=== PATIENT | female | born 1955 | race Caucasian/White ===

== ENCOUNTER → 2017-01-29 | Outpatient (CLI) | payer OTHER ==
[2017-01-29 11:00] LABS: BLOOD UREA NITROGEN 16 mg/dl (7-18); BUN/CREATININE RATIO 20.7 (10-20); CALCIUM 9.1 mg/dl (8.5-10.1); CARBON DIOXIDE 27 mmol/L (21-32); CHLORIDE 110 mmol/L (98-107); CREATININE 0.79 mg/dl (0.60-1.20); GLUCOSE 106 mg/dl (70-99); SODIUM 144 mmol/L (136-145)
[2017-01-29 11:04] LABS: CHOLESTEROL 196 mg/dl (0-200); HDL CHOLESTEROL 49 mg/dl; LDL CHOLESTEROL CALCULATED 122 mg/dl; TRIGLYCERIDES 125 mg/dl (0-150); VERY LOW DENSITY LIPOPROT CALC 25 mg/dl
== END | disposition home or self-care (01) ==
LOC: C.LAB 09:34
PROVIDERS: ATTEND Family Medicine
DX: I10 Essential (primary) hypertension (principal); E78.5 Hyperlipidemia, unspecified

== ENCOUNTER → 2017-03-31 | Outpatient (CLI) | payer OTHER ==
[2017-03-31 12:21] LABS: ESTIMATED AVERAGE GLUCOSE 117 mg/dl; HA1C FLAG Normal (Normal)
== END | disposition home or self-care (01) ==
LOC: C.LAB 09:41
PROVIDERS: ATTEND Nurse Practitioner Adult Health
DX: R73.01 Impaired fasting glucose (principal)

== ENCOUNTER → 2017-05-27 | Outpatient (CLI) | payer OTHER ==
[~2017-05-27] VITALS: Ht 154.9 cm; Wt 84.0 kg
[2017-05-27 13:29] VITALS: BP 156/90; PULSE 69; Ht 154.9 cm; Wt 84.0 kg
== END | disposition home or self-care (01) ==
LOC: C.NEUR 13:00
PROVIDERS: ATTEND Internal Medicine Pulmonary Disease
DX: R06.83 Snoring (principal); R06.81 Apnea, not elsewhere classified; R53.83 Other fatigue; J30.9 Allergic rhinitis, unspecified; R51 Headache; E66.9 Obesity, unspecified

== ENCOUNTER → 2017-07-18 | Outpatient (CLI) | payer OTHER | END | disposition home or self-care (01) | LOC: C.NEUR 14:42 | PROVIDERS: ATTEND Internal Medicine Pulmonary Disease | DX: R06.81 Apnea, not elsewhere classified (principal); R53.83 Other fatigue; R51 Headache; E66.9 Obesity, unspecified; R06.83 Snoring ==

== ENCOUNTER → 2017-08-05 | Outpatient (CLI) | payer OTHER ==
[~2017-08-05] VITALS: Ht 154.9 cm; Wt 83.5 kg
[2017-08-05 15:48] VITALS: BP 134/85; PULSE 89; Ht 154.9 cm; Wt 83.5 kg
== END | disposition home or self-care (01) ==
LOC: C.NEUR 15:30
PROVIDERS: ATTEND Internal Medicine Pulmonary Disease
DX: G47.33 Obstructive sleep apnea (adult) (pediatric) (principal); I10 Essential (primary) hypertension; G47.19 Other hypersomnia; R53.83 Other fatigue

== ENCOUNTER → 2017-08-15 | Outpatient (CLI) | payer OTHER ==
--- NOTE | 2017-08-16 06:36 | PAP/PSG TECHNICIAN REPORT ---
[facility] Supervisor Cleaning And Anne[employer] Polysomnogram Report Study name: None Report date: 08/16/2017 Study date: 08/15/2017 Referring Physician: Fidel Snowden M.D. Name: YUNIEL MORENO Interpreting Physician: Fidel Snowden M.D. Date of : 1955 Supervisor Cleaning And Annealing: EILEEN Garza. Sex: Female Age: 62 StudyType: PSG PAP Weight: 83.5 kgs Height: 62 years, Height 5' 1" Neck Circum: 15 inches BMI: Medications: Irbesartan-HCTZ 150-12.5mg, Zaditor Solution, Patient History Study started on room air with 4cwp cpap in room #6. 62 yr old female here tonight for a new titration study. She had a HST that had an TANJA of 21.3. Her ESS=16/24. Neck circ=15inches. Parameters Monitored NPSG: E1-M2, E2-M1, Fp1-M2, Fp2-M1, F3-M2, F4-M2, F4-M1, C3-M2, C4-M2, C4-M1, O1-M2, O2-M2, O2-M1, T3-M2, T4-M1, P3-M2, P4-M1, CHIN1, CHIN2, HR, EKG, Legs, PFLOW, SNOR, FLOW, CFLOW, Tidal Volume, THOR, ABDO, SpO2, PLTH, CPRESS, ETCO2 Wave, ETCO2, pH Sleep Architecture Sleep Stages Time at Lights Off 10:36:47 PM STAGES Time (min.) TST (%) Time at Lights On 5:30:17 AM Wake 115.5 -- Total Recording Time (TRT) 414.00 min. N1 27.5 9 Total Sleep Period (TSP) 375.0 min. N2 178.5 60 Total Sleep Time (TST) 298.0min. N3 70.0 23 Awake Time 115.5 min. REM 22.0 7 Wake after Sleep Onset 77.0 min. Sleep Efficiency (SE) 72 % Sleep Onset Latency (NATACHA) 38.5 min. Number of Stage 1 Shifts None Awakenings 30 Stage Changes 125 Number of REM periods 3 REM 22.0 7 REM Latency 237.5 min. NREM 276.0 93 Body Position Analysis Supine Right Left Side Prone Vertical Total Sleep Time (min.) 95.1 73.4 156.0 229.41 26.1 0.0 Total Sleep Time (%) 16% 25% 52% 77 7% N/A% Total Sleep Time REM (min.) 0.0 0.0 22.0 None 0.0 0.0 Total Sleep Time NREM (min.) 46.6 73.4 134.0 None 22.0 0.0 Intermittent Wake (min.) 48.5 28.5 34.4 None 4.1 0.0 Total Sleep Period (%) 18% None None None None None Arousals Myoclonus (PLM) * Events Count Index Events Count Index Spontaneous 33 7 Events Awake (PLMW) 135 70.1 Respiratory 42 8.9 Events Asleep w/ Arousal (PLMA) 35 7.0 PLM 33 7 Events Asleep w/o Arousal (PLMS) 105 21.1 Snoring 2 0 Total Asleep 140 28.2 Total 110 22 Total 275 40 Respiratory Analysis * CA OA MA CH H RERA Total Count 2 10 1 0 39 0 52 Index 0.4 2.0 0.2 0 7.9 0 10.5 Mean Duration 20.2 17.8 16.7 0.00 25.5 0.0 23.6 Longest Duration 22.6 21.4 16.7 0.00 16.7 0.0 63.0 Respiratory Event Summary Total Supine ~Supine Right Left Prone REM NREM Apneas Count 13 4 9 0 8 1 0 13 Index 2.6 5 2 0.0 3.1 3 0 3 Hypopneas (4% Desat) Count 39 10 29 4 25 0 0 39 Index 7.9 12.9 7 3.3 9.6 0.0 0.0 8.5 Apneas & All Hypopneas Count 52 14 38 4 33 1 0 52 Index 10.5 18 9 3 13 3 0.0 11.3 Respiratory Events (Associate Software Development Engineer+All Hyp+RERA) Count 52 14 38 4 33 1 0 52 Index 10.5 18 9 3.3 12.7 2.7 0.0 11.3 Respiratory Related Arousal Count 42 14 33 1 32 0 0 44 Index 8.9 14 8 1 12 0 0 10 Snoring Analysis Supine Right Left Prone REM NREM Total Snore duration 8.9 min Snores count 57 96 229 7 2 387 389 Snore mean duration 1.4 Sec Snores index 73 78 88 19 5.5 84.1 78.3 TST with snoring (%) 3.0% Desaturation Event Summary: Minimum %SpO2 Event Count Mean/Min/Max Duration(sec.) Desaturation Index % Time In Bed > 90 89 25.6 / 4.3 / 57.3 15.2 87.2 86 - 90 4 14.4 / 7.5 / 20.3 4.7 12.7 81 - 85 0 N/A 0.0 0.1 76 - 80 0 N/A 0.0 0.0 71 - 75 0 N/A 0.0 0.0 66 - 70 0 N/A 0.0 0.0 61 - 65 0 N/A 0.0 0.0 56 - 60 0 N/A 0.0 0.0 51 - 55 0 N/A 0.0 0.0 < 50 0 N/A 0.0 0.0 Total REM NREM Awake <50% 0.0 min. 0.0 min. 0.0 min. 0.0 min. 51 - 60% 0.0 min. 0.0 min. 0.0 min. 0.0 min. 61 - 70% 0.0 min. 0.0 min. 0.0 min. 0.0 min. 71 - 80% 0.0 min. 0.0 min. 0.0 min. 0.0 min. 81 - 90% 51.7 min. 0.0 min. 32.3 min. 19.4 min. 91 - 100% 351.2 min. 22.0 min. 243.3 min. 85.9 min. Average 92 93 93 92 Minimum SpO2 82 91 87 82 Desaturation Event Index 12.9 0.0 12.4 18.2 # Desat. Events below 89% 24 N/A 17 7 Time(%) with Saturation below 89% 1.2 0.0 0.7 0.5 Time(min.) with Saturation below 89% 4.8 0.0 2.8 2.0 Time (mins) REM (mins) NREM (mins) % of TST SpO2 Below 90% 46 N/A N46 3.3 SpO2 Below 88% 5 0 0 0 Heart Rate Analysis Min (bpm) Max (bpm) Average (bpm) Awake 40 225 82 NREM 65 188 77 REM 68 79 74 Overall 65 188 77 Supplemental O2 Values Minimum O2 level: None Value Start Time End Time Supervisor Cleaning And [employer]aling Comments Ms. Moreno slept in the right, left, prone and supine positions. No cardiac arrhythmia noted. Some leg movements were noted. No bruxism noted. CPAP was initiated at +4 CMH2O and up-titrated to a level of +11 CMH2O, which nearly eliminated all respiratory events and snoring. A small Simplus full face mask by Daxa was used during titration. She awoke to use the restroom 1 time during the night. She stated that she slept worse than when at home. She over did it at the gym and was having knee and hip pain. The final report will be interpreted and signed by a sleep physician. The completed physician report will then be placed in the patient medical record. Therapy Event: Therapy (cm H20) 4 5 6 7 8 9 10 11 Total Time at Pressure (min.) 47.8 6.5 16.8 38.6 47.6 66.2 44.1 145.8 TST at Pressure (min.) 7.8 6.5 15.3 28.6 46.8 31.1 27.6 134.3 # Periods 1 1 1 1 1 1 1 1 Sleep Onset (min.) 38.4 0.0 0.0 0.0 0.0 0.1 0.0 0.0 REM Onset (min.) N/A N/A N/A N/A N/A N/A N/A 8.3 Sleep Efficiency % 16 100 91 74 98 46 62 92 Wakefulness (%) 83.6 0.0 8.9 25.9 1.8 53.1 37.4 7.9 Wakefulness (min.) 39.9 0.0 1.5 10.0 0.9 35.1 16.5 11.5 NREM 1 (%) 8.4 22.9 23.8 9.7 6.9 4.5 4.5 4.1 NREM 1 (min.) 4.0 1.5 4.0 3.7 3.3 3.0 2.0 6.0 NREM 2 (%) 8.1 77.1 60.2 35.0 64.0 42.4 37.7 48.6 NREM 2 (min.) 3.8 5.0 10.1 13.5 30.5 28.1 16.6 70.8 NREM 3 (%) 0.0 0.0 7.0 29.4 27.3 0.0 20.4 24.4 NREM 3 (min.) 0.0 0.0 1.2 11.3 13.0 0.0 9.0 35.5 REM (%) 0.0 0.0 0.0 0.0 0.0 0.0 0.0 15.1 REM (min.) 0.0 0.0 0.0 0.0 0.0 0.0 0.0 22.0 # Arousals 11 11 14 12 20 10 14 18 Arousal Index 84.1 100.8 55.0 25.2 25.7 19.3 30.4 8.0 # Snore 3 11 43 163 86 55 3 25 Snore Index 22.9 100.8 168.9 342.4 110.3 106.2 6.5 11.2 AHI 45.9 100.8 35.4 14.7 9.0 7.7 10.9 1.3 AHI Supine N/A N/A N/A N/A 33.1 8.3 33.2 8.6 AHI Non-Supine 45.9 100.8 35.4 14.7 0.0 7.2 5.4 0.5 NREM AHI 45.9 100.8 35.4 14.7 9.0 7.7 10.9 1.6 REM AHI N/A N/A N/A N/A N/A N/A N/A 0.0 RDI 45.9 100.8 35.4 14.7 9.0 7.7 10.9 1.3 # Obstructive 2 3 1 0 1 0 2 1 # Central Ap 0 2 0 0 0 0 0 0 # Mixed 0 0 0 0 1 0 0 0 # Hypopneas 4 6 8 7 5 4 3 2 RERAS 0 0 0 0 0 0 0 0 Total Respiratory Events 6 11 9 7 7 4 5 3 Time Below SpO2 89.00% (min.) 0.8 1.3 0.1 0.1 0.2 0.3 0.0 0.0 Mean NREM SpO2 (%) 91 91 92 92 92 91 91 94 Mean REM SpO2 (%) N/A N/A N/A N/A N/A N/A N/A 93 Mean Sleep SpO2 (%) 91 91 92 92 92 91 91 94 Min NREM SpO2 (%) 87 87 88 88 88 88 89 90 Min REM SpO2 (%) N/A N/A N/A N/A N/A N/A N/A 91 Position Supine (min.) 0.0 0.0 0.0 0.0 12.7 14.5 5.4 14.0 Position Non-supine (min.) 7.8 6.5 15.3 28.6 34.1 16.6 22.2 120.3 LM Index Sleep 22.9 91.6 15.7 23.1 25.7 30.9 19.5 29.9 LM Index NREM 22.9 91.6 15.7 23.1 25.7 30.9 19.5 30.5 LM Index REM N/A N/A N/A N/A N/A N/A N/A 27.3 Mean Heart Rate (bpm) 80 80 82 80 82 80 79 73 Min Heart Rate (bpm) 75 73 73 74 76 74 73 65
--- NOTE | 2017-08-16 10:01 | POLYSOMNOGRAPH REPORT ---
CLINICAL DATA: 62-year-old female referred by myself for CPAP titration study. She had a home sleep apnea test performed which showed an RDI of 21.3 indicating moderate sleep apnea. SLEEP ARCHITECTURE: Total sleep period was 375 minutes. Total sleep time was 298 minutes divided between 276 minutes of non-REM sleep and 22 minutes of REM sleep. Sleep onset latency was delayed at 38.5 minutes. REM latency was delayed at 237.5 minutes. Sleep efficiency was 72%. Wake after sleep onset was 77 minutes. Sleep consisted of stage N1 9%, stage N2 60%, stage N3 22%, and REM 7%. AROUSAL DATA: 110 arousals were recorded for an index of 22 per hour. PLM DATA: 140 limb movements during sleep were noted for an index of 28.2 per hour with arousal index of 7 per hour. RESPIRATORY DATA: The AHI was 10.5. There were 2 central, 10 obstructive, and 1 mixed apneic episodes. The longest apneic episode was 22.6 seconds. There were 39 hypopneic episodes. The mean duration of hypopnea was 25.5 seconds. OXIMETRY DATA: Transient nocturnal hypoxemia was seen. Oxygen delma was 87%. Mean saturation was 92%. Time below 88% was 5 minutes. EKG: Heart ranged from 55-188 beats per minute. No arrhythmias were noted. WHITE SUGAR PAN TANK OPERATOR'S COMMENTS AND TREATMENT SUMMARY: The patient slept in the right, left, prone, and supine positions. A small Simplus full face mask by Daxa was used. The patient was titrated up to a final pressure setting of 11 cm of water pressure. At her final pressure setting, the patient slept for 134 minutes with an AHI of 1.3. IMPRESSION: Moderate sleep apnea/hypopnea corrected with CPAP 11 cm of water pressure Daxa small Simplus full facemask. RECOMMENDATIONS: The patient will be started on the above noted treatment regimen and seen back in followup within 90 days to document efficacy and compliance. [facility]
== END | disposition home or self-care (01) ==
LOC: C.NEUR 21:00
PROVIDERS: ATTEND Internal Medicine Pulmonary Disease
DX: G47.30 Sleep apnea, unspecified (principal)

== ENCOUNTER → 2018-03-24 | Outpatient (CLI) | payer OTHER ==
[2018-03-24 11:17] LABS: ALBUMIN 3.8 gm/dl (3.4-5.0); ALKALINE PHOSPHATASE 69 U/L (45-117); ALT/SGPT 36 U/L (12-78); AST/SGOT 15 U/L (15-37); BLOOD UREA NITROGEN 17 mg/dl (7-18); CALCIUM 8.6 mg/dl (8.5-10.1); CARBON DIOXIDE 28 mmol/L (21-32); CHOLESTEROL 183 mg/dl (0-200); CREATININE 0.71 mg/dl (0.60-1.20); GLUCOSE 103 mg/dl (70-99); LDL CHOLESTEROL CALCULATED 109 mg/dl; POTASSIUM 4.1 mmol/L (3.5-5.1); SODIUM 140 mmol/L (136-145); TOTAL PROTEIN 7.5 gm/dl (6.4-8.2)
[2018-03-24 11:27] LABS: HEMOGLOBIN A1C 5.6 % (4.5-5.6)
== END | disposition home or self-care (01) ==
LOC: C.LAB 09:16
PROVIDERS: ATTEND Family Medicine
DX: I10 Essential (primary) hypertension (principal); R73.03 Prediabetes

== ENCOUNTER 2023-01-17 06:28 | Observation (INO) ==
--- NOTE | 2022-12-09 12:28 | PAT Medication Instructions ---
Medication Instructions Date of Service December 09, 2022 Home Medications Medication Instructions Recorded CPAP Supplies #1 ea 03/29/19 Lactobacillus rhamnosus GG 5 5,000 mmu cells PO DAILY #30 ea 09/10/20 billion cell oral powder packet ([employer] Probiotics) Lactobacillus rhamnosus GG 5 billion cell oral powder packet ([employer] Probiotics) 5,000 mmu cells PO DAILY Doterra 1 dose PO BID Soothe Eye Drops 1 dose OPL BID apple cider vinegar 600 mg capsule 600 mg PO QAM digestive enzymes 1 cap PO DAILY fexofenadine 180 mg tablet 180 mg PO QAM irbesartan 150 mg-hydrochlorothiazide 12.5 mg tablet 1 tab PO QAM psyllium 1 packet PO HS sodium chloride 0.9 % spray 1 spray miscellaneous DIRECTED PRN Congestion tea tree oil 100 % topical 1 ea topical DIRECTED STOP taking 2 weeks before surgery (or as soon as possible if surgery is within 2 weeks) Doterra 1 dose PO BID apple cider vinegar 600 mg capsule 600 mg PO QAM STOP taking 24 hours before surgery tea tree oil 100 % topical 1 ea topical DIRECTED DO NOT take the morning of surgery Lactobacillus rhamnosus GG 5 billion cell oral powder packet ([employer] Probiotics) 5,000 mmu cells PO DAILY digestive enzymes 1 cap PO DAILY fexofenadine 180 mg tablet 180 mg PO QAM irbesartan 150 mg-hydrochlorothiazide 12.5 mg tablet 1 tab PO QAM Take morning of surgery With a small sip of water, OTHERWISE NOTHING TO EAT OR DRINK AFTER MIDNIGHT: Soothe Eye Drops 1 dose OPL BID sodium chloride 0.9 % spray 1 spray miscellaneous DIRECTED PRN Congestion (if needed) Take evening before surgery Soothe Eye Drops 1 dose OPL BID psyllium 1 packet PO HS sodium chloride 0.9 % spray 1 spray miscellaneous DIRECTED PRN Congestion (if needed) Other Notes If you have any questions please call us at [phone] or [phone] or [phone] or [phone]
--- NOTE | 2022-12-15 10:29 | Anesthesiology Consultation ---
Date of Service December 15, 2022 Assessment & Plan (1) Encounter for pre-operative examination: - surgery/lab draw anxiety. - Outpatient joint assessment: Patient is currently scheduled for inpatient pathway. If re-evaluated pending system levels during current pandemic/surgeon requests outpatient pathway, patient is not recommended candidate for outpatient joint program from anesthesia standpoint. She states her would be caregiver and he is suffering from knee dysfunction at this time so she feels more comfortable remaining overnight. Chart Review Chart Review: Acceptable Risk for Surgery and Patient seen in Pre Admission Testing Teaching & Discussion Pre-Anesthesia Teaching/Discussion Notes: Instructed NPO after midnight before surgery, except medications with 15 cc of water. Medication instructions provided according to the PAT guidelines. History Surgery Operation Date: 01/17/23 08:25 Proposed Procedures p Right Total Knee Arthroplasty - Henrry Fregoso DO Height/Weight Height: 5 ft 1 in Weight: 85.275 kg Allergies Allergy/AdvReac Type Severity Reaction Status Date / Time No Known Drug Allergies Allergy Verified 12/09/22 08:01 Medications Home Medications Medication Instructions Recorded Confirmed Last Taken CPAP Supplies #1 ea 03/29/19 10/13/22 Unknown Lactobacillus rhamnosus GG 5 5,000 mmu cells PO DAILY #30 ea 09/10/20 12/09/22 Unknown billion cell oral powder packet ([employer] Probiotics) Doterra 1 dose PO BID 12/09/22 12/09/22 Unknown Soothe Eye Drops 1 dose OPL BID 12/09/22 12/09/22 Unknown apple cider vinegar 600 mg capsule 600 mg PO QAM 12/09/22 12/09/22 Unknown digestive enzymes 1 cap PO DAILY 12/09/22 12/09/22 Unknown fexofenadine 180 mg tablet 180 mg PO QAM 12/09/22 12/09/22 Unknown irbesartan 150 1 tab PO QAM 12/09/22 12/09/22 Unknown mg-hydrochlorothiazide 12.5 mg tablet psyllium 1 packet PO HS 12/09/22 12/09/22 Unknown sodium chloride 0.9 % spray 1 spray miscellaneous DIRECTED 12/09/22 12/09/22 Unknown PRN Congestion tea tree oil 100 % topical 1 ea topical DIRECTED 12/09/22 12/09/22 Unknown Past Medical History Medical History (Updated 12/15/22 @ 10:53 by Helen Sweet PA-C) Hearing loss bilat aides History of COVID-19 08/29/22 > home test > not hospitalized > symptoms resolved Hyperlipidemia Elevated ASCVD risk. Declined Statins 08/2020 Hypertension controlled, stable per pt; white coat HTN Moderate obstructive sleep apnea (~2018) CPAP Daily, Followed by Dr. Snowden Osteopenia Prediabetes diet control Patient denies h/o stroke, seizures, heart attack, heart failure, blood clots or blood transfusions. Exercise / Class Metabolic Activity II 4-5 Yardwork/Stairs/Walk up hill (denies chest discomfort or shortness of breath with 1 FOS) Past Family History Family History Mother Hypertension Brother Hypertension Family/Other Hypertension Denies family history of Ovarian cancer Prostate cancer Myocardial infarction Breast cancer Colorectal cancer Past Surgical History Surgical History (Updated 12/15/22 @ 10:55 by Helen Sweet PA-C) H/O arthroscopic knee surgery right H/O section x2 H/O eye surgery tear duct stents x 6 procedures History of cardiac cath 20 yrs ago > no stents History of colonoscopy History of tooth extraction WTE Past Anesthesia History No Hx of Anesthesia Complications and No Family Hx of Anesthesia Complications History of PONV No Hx of PONV and Hx of Motion Sickness Social History Smoking Status: Never smoker Do You Dip or Chew Tobacco: No Hx Alcohol Use: Yes Alcohol type: beer and wine alcohol intake frequency: a few times a week Hx Substance Use: No substance use type: does not use Review of Systems Patient denies chest pain, shortness of breath, dyspnea on exertion, reflux, fever, chills, cough, wheezing, or palpitations. Physical Exam Vital Signs Vitals BP 161/82 (pt reports home BP readings are consistently 120-80s) P 70 TEMP 98.2 SP02 94% on RA RESP 18 Physical Full cervical extension range of motion without pain TMD 3.5 finger breadths Mallampati Score 3 Dentition: several crowns, denies chipped or loose teeth, caps/crowns, implants or bridges Lungs: normal respiratory effort. Clear throughout to auscultation, no adventitious breath sounds Cardiac: regular rate and rhythm, no murmurs noted Carotid arteries: negative bruit bilat Lab Results Anesthesia Preop Results Results Anesthesia Widget: WBC 6.83 K/ul (4.8-10.8) 12/15/22 Hgb 15.2 g/dl (12.0-16.0) 12/15/22 Hct 44.6 % (37.0-47.0) 12/15/22 Plt 243 K/uL (130-400) 12/15/22 Na 141 mmol/L (136-145) 12/15/22 K 3.6 mmol/L (3.5-5.1) 12/15/22 Cl 104 mmol/L (98-107) 12/15/22 CO2 28 mmol/L (21-32) 12/15/22 BUN 19 mg/dl (6-23) 12/15/22 Creat 0.81 mg/dl (0.6-1.2) 12/15/22 Glucose Level 90 mg/dl (70-99(Fasting)) 12/15/22 PT 11.2 Seconds (9.0-12.0) 12/15/22 PTT 28.8 Seconds (21.0-31.0) 12/15/22 INR 1.1 (0.9-1.1) 12/15/22 Blood Type A Positive 12/15/22 Antibody Screen NEGATIVE 12/15/22 Testing Electrocardiogram Date: 12/15/22 NSR, rate 69 bpm Chest X-Ray Date: 12/15/22 Cardiac silhouette is enlarged. No pneumothorax, pleural effusion, airspace consolidation or pulmonary edema. Bones of the chest appear grossly intact. IMPRESSION: No acute process. COVID-19 Risk Screen Screening Information COVID-19 Screen Date: 12/15/22 Exposure 21 Days Family/Household +COVID Last 21 Days: No Exposure 10 Days Any COVID Exposure Last 10 Days: No Symptoms Last 10 Days Experienced COVID Sx Last 10 Days: No + COVID 0-90 Days COVID + in Last 0-90 Days: No
--- NOTE | 2023-01-13 10:01 | History & Physical Report ---
Date of Service January 13, 2023 Assessment & Plan (1) Osteoarthritis of right knee: We will proceed with a right total knee arthroplasty. Postoperatively she will be started on aspirin for DVT prophylaxis and kept overnight in the hospital for postop medical management. She plans to see Jessica Salgado physical therapy upon discharge. History of Present Illness Chief Complaint: Osteoarthritis of the right knee. Primary Care Provider: Shraddha Mayer DO Juliette is a pleasant 67-year-old female who has been dealing with chronic worsening osteoarthritis of her right knee. She has failed extensive conservative treatment for this including injections, physical therapy, active modifications, and anti-inflammatories. She has elected proceed with a right total knee arthroplasty. Allergies Allergy/AdvReac Type Severity Reaction Status Date / Time No Known Drug Allergies Allergy Verified 12/09/22 08:01 Home Medications Medication Instructions Recorded Confirmed Type CPAP Supplies #1 ea 03/29/19 10/13/22 Rx Lactobacillus rhamnosus GG 5 5,000 mmu cells PO DAILY #30 ea 09/10/20 12/09/22 Rx billion cell oral powder packet ([employer] Probiotics) Doterra 1 dose PO BID 12/09/22 12/09/22 History Soothe Eye Drops 1 dose OPL BID 12/09/22 12/09/22 History apple cider vinegar 600 mg capsule 600 mg PO QAM 12/09/22 12/09/22 History digestive enzymes 1 cap PO DAILY 12/09/22 12/09/22 History fexofenadine 180 mg tablet 180 mg PO QAM 12/09/22 12/09/22 History irbesartan 150 1 tab PO QAM 12/09/22 12/09/22 History mg-hydrochlorothiazide 12.5 mg tablet psyllium 1 packet PO HS 12/09/22 12/09/22 History sodium chloride 0.9 % spray 1 spray miscellaneous DIRECTED 12/09/22 12/09/22 History PRN Congestion tea tree oil 100 % topical 1 ea topical DIRECTED 12/09/22 12/09/22 History Past Med/Surg History Medical History Hearing loss bilat aides History of COVID-19 08/29/22 > home test > not hospitalized > symptoms resolved Hyperlipidemia Elevated ASCVD risk. Declined Statins 08/2020 Hypertension controlled, stable per pt; white coat HTN Moderate obstructive sleep apnea (~2018) CPAP Daily, Followed by Dr. Snowden Osteopenia Prediabetes diet control Surgical History H/O arthroscopic knee surgery right H/O section x2 H/O eye surgery tear duct stents x 6 procedures History of cardiac cath 20 yrs ago > no stents History of colonoscopy History of tooth extraction WTE Family History Mother Hypertension Brother Hypertension Family/Other Hypertension Denies family history of Ovarian cancer Prostate cancer Myocardial infarction Breast cancer Colorectal cancer Social History Smoking Status: Never smoker Second Hand Exposure: No; Do You Dip or Chew Tobacco: No; Hx Alcohol Use: Yes Alcohol type: beer and wine Alcohol Intake Frequency: 4 or More x per/Week Hx Substance Use: No Preferred Language: Persian Communication Ability: Effective Visual Impairment: Diminished Hearing Ability: Use of Hearing Aid Shoe Shanker Required: No Beliefs That Will Affect Care: None marital status: Current Living Situation: Spouse current occupational status: retired Feels Safe at Home: Yes Childhood Exposure to Second-Hand Smoke: No Diet: Weight Watchers caffeine: Yes Dental Care, Regularly: Yes Physical Activity Frequency: 3-4 Times per Week Seatbelt Use: always Sunscreen Use: Yes Do you think of yourself as: straight/heterosexual Assistive Devices: CPAP, Glasses and Hearing Aid - Bilateral Review of Systems All systems reviewed & are unremarkable except as noted in HPI & below. Physical Exam Physical examination of the right knee shows range of motion 0 to 120 degrees. No instability. Pain of the distal medial femoral condyle and over the medial joint line.. Constitutional WD/WN, vitals as above Eyes PERRL, conjunctivae normal, anicteric sclerae ENMT external ear and nose normal, oropharynx normal Neck trachea midline, no thyromegaly Respiratory normal respiratory effort, lungs clear to auscultation Cardiovascular RRR, no murmur, no edema Gastrointestinal (Abdomen) normal bowel sounds, soft, nontender, no hepatosplenomegaly Skin no rashes, warm and dry Psychiatric A+Ox3, euthymic affect Results & Data Results & Data Laboratory Results . Diagnostic Findings X-rays of the right knee show advanced osteoarthritis with joint space narrowing, osteophyte formation, and [id number] articulation.. PG Care Time/CCT Total # of Minutes Spent Total Time Spent with Patient: Total time spent is greater than 50% in coordination of care (as documented) at patient's floor/unit and/or counseling patient: Coding Level of Care Code None Diagnoses Osteoarthritis of right knee M17.11
[~2023-01-17 06:28] MED LIST: ACETAMINOPHEN 500 MG TAB PO SCH; BUPIVACAINE 0.25% PF 30 ML VIAL ONE; BUPIVACAINE 0.5 % 5 MG/1 ML PF 10ML VIAL ONE; FAMOTIDINE 20 MG TAB PO SCH; GABAPENTIN 300 MG CAP PO SCH; LR 500ML BOLUS, THEN 15ML/HR IV SCH; LR 60ML/HR IV SCH; ORTHO JOINT MIX INFIL SCH; TRANEXAMIC ACID 1,000 MG **IV Intra-op IV SCH; TRANEXAMIC ACID 1,000 MG **IV Pre-op IV SCH; ceFAZolin 2000MG 2,000 MG/15 ML SYR IV SCH; dexAMETHasone 4 MG TAB PO SCH
[2023-01-17] MEDS ORDERED: ONDANSETRON INJ 2 MG/ML 2 ML VIAL IV PRN ×2 (06:36→11:25)
[2023-01-17] MEDS ORDERED: fentaNYL citrate PF 100 MCG/2 ML VIAL IV PRN (06:36)
[2023-01-17] MEDS ORDERED: ePHEDrine sulfate 50 MG/ML AMP IV PRN (06:36)
[2023-01-17] MEDS ORDERED: ATROPINE SULFATE 0.1 MG/ML 10ML SYR IV PRN (06:36)
--- NOTE | 2023-01-17 06:40 | History & Physical Bridge Note ---
Date of Service January 17, 2023 History & Physical Bridge Note I have examined the patient, reviewed the History & Physical and in the interval since the performance of the History & Physical I have noted the following changes of clinical significance: no changes noted
[2023-01-17] MEDS ORDERED: MIDAZOLAM HCL 1 MG/ML 2ML VIAL ONE ×3 (07:26→07:42)
[2023-01-17] MEDS ORDERED: PROPOFOL IV EMULSION 10 MG/ML 20 ML VIAL IV ONE (07:26)
[2023-01-17] MEDS ORDERED: fentaNYL citrate PF 100 MCG/2 ML VIAL ONE (07:26)
[2023-01-17] MEDS ORDERED: LIDOCAINE 2% 2 ML VIAL/AMP(20MG/ML) INFIL ONE (07:26)
[2023-01-17] MEDS ORDERED: ORTHO JOINT ANESTHETIC ONE (08:17)
--- NOTE | 2023-01-17 09:37 | Operative Report ---
PG Post Operative Report Pre & Post Diagnosis Operation Date: 01/17/23 08:15 Pre-Op Diagnosis: Right Knee Degenerative Joint Disease Post-Op Diagnosis: Right Knee Degenerative Joint Disease I identified the patient and participated in the time-out.: Yes Procedure Operation Date: 01/17/23 08:15 Actual Procedures p Right Total Knee Arthroplasty(Right) - Henrry Fregoso DO Surgeon Henrry Fregoso DO Broadcast Traffic Coordinator Henrry García PA-C Estimated Blood Loss 30 Findings Consistent with Post-Op Diagnosis Specimens Right femoral tibial bone Description of Procedure Implants used: I used a Wanda Persona total knee arthroplasty system with a size 6 narrow femur, D tibia, 28 oval patella, and a size 11 medial congruent polyethylene bearing. All components were cemented in place with Biomet cement. Juliette arrived [facility] for the above procedure. He was seen in the preoperative holding area and the operative extremity was identified and signed. He was given a preoperative antibiotic, TXA, a spinal anesthetic and an adductor nerve block. He was taken back to the operating room and laid on the table in supine position. He was given basic sedation. The operative knee was then prepped and draped in sterile fashion. A timeout was done, and the patient and the operative extremity was properly identified. A midline incision was made directly over the patella. Dissection was taken down to the extensor mechanism. A midvastus arthrotomy was used. The medial retinaculum was released and the fat pad was mostly excised. The knee was flexed and the ACL, PCL, and meniscus were removed. A drill was sent down the center of the femoral canal followed by an intramedullary bacilio. Off that bacilio a distal femoral cutting block was placed. 9 mm was resected off the distal femur at 5 of valgus. A posterior referencing AP sizing guide was then placed on the distal femur. The femur measured to be a size 6. 2 drill holes were placed in 3 of external rotation. A 4-in-1 cutting block was then impacted into place. Anterior, posterior, and chamfer cuts were then made. The proximal tibia was then exposed. An external tibial alignment guide was placed. A tibial cut guide was then anchored in place and the proximal tibia was then resected. The posterior aspect of the knee was then opened up and any additional meniscus fragments and osteophytes were removed. The tibia measured to be a size D. The tibial plate was then placed in the appropriate rotation and the tibia was drilled and punched. Trial components were then placed. I used a size 11 medial congruent polyethylene insert. The knee was brought through a full range of motion and felt to be stable. The peg holes for the femoral component were then drilled. The patella was then everted and 9 mm was resected off the posterior aspect of the patella. The patella measured to be a size 28 oval. 3 peg holes were then drilled. A trial patella was placed. The knee was once again brought through a full range of motion and felt to be stable. Trial components were then removed. The surrounding soft tissues were injected with 100 cc of an orthopedic pain control cocktail. All components were then cemented into place with Biomet cement. The final polyethylene insert was then snapped into place. Once cement was dry the tourniquet was deflated. Hemostasis was obtained. A dilute betadyne lavage was then done for 3 minutes. The joint was then irrigated with normal saline solution. The midvastus arthrotomy was then closed with #1 Vicryl suture. The skin was closed with 2-0 Vicryl, 3-0V lock suture, and flash. A soft compressive dressing was placed. He was then transferred to a hospital bed and taken to the postanesthesia care unit in stable condition. He tolerated the procedure well. Henrry García PA-C, was present for the entire procedure. He was critical for patient positioning, prepping, draping, retraction exposure, wound closure and application of sterile dressing. I attest to the content of the Intraoperative Record and any orders documented therein. Any exceptions are noted below.
--- NOTE | 2023-01-17 11:09 | Anesthesiology Progress Note ---
Date of Service January 17, 2023 Anesthesia Post Procedure Vital Signs Vital Signs: Temp Pulse Pulse Resp BP Pulse Ox O2 Del Method 01/17/23 11:00 36.4 C L 68 12 106/64 94 Nasal Cannula 01/17/23 10:50 66 12 105/61 99 Nasal Cannula 01/17/23 10:40 65 13 109/69 94 Nasal Cannula 01/17/23 10:30 72 16 107/67 95 Nasal Cannula 01/17/23 10:20 68 14 109/68 96 Nasal Cannula 01/17/23 10:10 67 13 116/64 97 Nasal Cannula 01/17/23 10:00 36.0 C L 86 16 107/58 L 97 Room Air 01/17/23 07:04 36.6 C 83 20 164/90 H 94 Room Air O2 Flow Rate 01/17/23 11:00 2 01/17/23 10:50 2 01/17/23 10:40 2 01/17/23 10:30 2 01/17/23 10:20 2 01/17/23 10:10 2 01/17/23 10:00 01/17/23 07:04 Transfer of Care Handoff Completed per policy Notes Mental Status: alert / awake / arousable and participated in evaluation Patient Amnestic to Procedure: Yes Nausea / Vomiting: adequately controlled Pain: adequately controlled Airway Patency, RR, SpO2: stable & adequate BP & HR: stable & adequate Hydration State: stable & adequate Neuraxial Anesthesia: was administered and sensory block is resolving Anesthetic Complications: no major complications apparent and Pt Satisfied with anesthetic care
[2023-01-17] MEDS ORDERED: NALOXONE HCL 0.4 MG/1 ML VIAL/CARP IV PRN (11:25)
[2023-01-17] MEDS ORDERED: METOCLOPRAMIDE HCL INJ 5 MG/ML 2 ML VIAL IV PRN (11:25)
[2023-01-17] MEDS ORDERED: HYDROmorphone INJ 0.5 MG/0.5 ML SYR IV PRN (11:25)
[2023-01-17] MEDS ORDERED: SODIUM CHLORIDE 0.9% MS PRN (11:25)
[2023-01-17] MEDS ORDERED: bisacodyL 10 MG SUPP PR PRN (11:25)
[2023-01-17] MEDS ORDERED: MAGNESIUM HYDROXIDE SUSP 30 ML UDC PO PRN (11:25)
[2023-01-17] MEDS: SODIUM CHLORIDE 0.9% 1000ML 1,000 ML IV SCH ×2 (11:41→21:20)
[2023-01-17] MEDS: KETOROLAC TROMETHAMINE 15 MG/ML VIAL IV SCH ×2 (12:26→17:20)
--- NOTE | 2023-01-17 13:17 | XRay Report ---
RIGHT KNEE 2 VIEWS History: Right total knee arthroplasty. Degenerative arthritis. Postop. FINDINGS: The patient is status post a right total knee arthroplasty. The hardware is intact. No frac ture or dislocation. Skin flash are in place. IMPRESSION: Right total knee arthroplasty. No evidence for hardware complication. ACT 112: Negative or not required by law. Electronically signed by: Dago Briceno M.D. 01/17/2023 1:16 PM
[2023-01-17] MEDS: ACETAMINOPHEN 500 MG TAB PO SCH ×2 (13:41→21:51)
[2023-01-17] MEDS: ceFAZolin 2000MG 2,000 MG/15 ML SYR IV SCH (16:01)
[2023-01-17] MEDS ORDERED: SENNA 8.6 MG TAB PO SCH (21:00)
[2023-01-17] MEDS ORDERED: SOOTHE EYE OPL SCH (21:00)
[2023-01-17] MEDS ORDERED: DOTERRA PO SCH (21:00)
[2023-01-17] MEDS: DOCUSATE SODIUM 100 MG CAP PO SCH (21:49)
[2023-01-17] MEDS: ASPIRIN 81 MG ECTAB PO SCH (21:50)
[2023-01-17] MEDS: oxyCODONE HCL IR 5 MG TAB (IMMEDIATE RELEASE) PO PRN (21:52)
[2023-01-18] MEDS: ceFAZolin 2000MG 2,000 MG/15 ML SYR IV SCH (00:33)
[2023-01-18] MEDS: KETOROLAC TROMETHAMINE 15 MG/ML VIAL IV SCH ×2 (00:33→05:48)
[2023-01-18] MEDS: ACETAMINOPHEN 500 MG TAB PO SCH (05:47)
--- NOTE | 2023-01-18 07:04 | Orthopedic Progress Note ---
Date of Service January 18, 2023 Assessment & Plan (1) Status post right knee replacement: Overall she is doing very well. She is not having much pain in the right knee. She will be seen by physical therapy today for ambulation and range of motion exercises. She is on aspirin for DVT prophylaxis. She can be discharged home later today. She will follow-up with orthopedics in 2 weeks. Marika Segovia was seen and examined at bedside this morning. Overall she is doing very well. She is not having much pain in the right knee. She has been up and ambulating to the bathroom. She has no complaints.. Review of Systems All systems reviewed & are unremarkable except as noted in HPI & below. Physical Exam On physical examination the right knee, the dressing is clean and dry. Her leg is out full extension. She has active dorsiflexion plantarflexion of her right ankle.. Results & Data Results & Data Laboratory Results . Diagnostic Findings Postoperative x-rays of the right knee show the prosthesis to be in anatomic alignment without any evidence of fracture, desiccation, or loosening. PG Care Time/CCT Total # of Minutes Spent Total Time Spent with Patient: Total time spent is greater than 50% in coordination of care (as documented) at patient's floor/unit and/or counseling patient: Coding Level of Care Code 09393 Post Operative Follow-Up Diagnoses Status post right knee replacement Z96.651
--- NOTE | 2023-01-18 07:05 | Discharge Summary ---
Date of Service January 18, 2023 Admission HPI (Per Admitting) Juliette is a pleasant 67-year-old female who has been dealing with chronic worsening osteoarthritis of her right knee. She has failed extensive conservative treatment for this including injections, physical therapy, active modifications, and anti-inflammatories. She has elected proceed with a right total knee arthroplasty. Admission Exam (Per Admitting) Physical examination of the right knee shows range of motion 0 to 120 degrees. No instability. Pain of the distal medial femoral condyle and over the medial joint line.. Principal Diagnosis Same as "Discharge Diagnosis" noted below under Discharge Instructions. Discharge Exam On physical examination the right knee, the dressing is clean and dry. Her leg is out full extension. She has active dorsiflexion plantarflexion of her right ankle.. Discharge Data Procedures Performed Operation Date: 01/17/23 08:15 Actual Procedures p Right Total Knee Arthroplasty(Right) - Henrry Fregoso DO Ordered Studies 01/17/23 05:00 US - OR guided needle placemen Routine Hospital Course (1) Status post right knee replacement: On January 17, [address] [facility] [place] and underwent a right knee replaced without complication. She had a spinal anesthetic. Postoperatively she was started on aspirin for DVT prophylaxis and transferred to the general orthopedic floors. Her hospital course was uneventful. On postop day #1, her vital signs were stable and her pain was well controlled. She was able to participate well with physical therapy doing ambulation and range of motion exercises. She was then discharged home. She will follow-up with orthopedics in 2 weeks. PG Care Time/CCT Total # of Minutes Spent Total Time Spent with Patient: Total time spent is greater than 50% in coordination of care (as documented) at patient's floor/unit and/or counseling patient: Discharge Plan Discharge Items Patient Disposition: Home - Home Health Services Reason For Visit: Degenerative Joint Disease Discharge Diagnosis: Right knee replacement Activity: Per Instructions section Non-emergency contact: Surgeon Call non-emergency contact if: your wound has increased redness and your wound has increased drainage Follow-up/Referrals: Shraddha Mayer DO [Primary Care Provider] - Diet: Regular Addtl Attending Provider Instructions: Activity and Therapy Recommendations: * If you are using [facility] then therapy will be provided at your home until they feel you have accomplished all of your goals. * If you are using [facility] then Physical Therapy will be provided until they feel you are ready to start Outpatient Physical Therapy. * If you are not using home therapy then Outpatient Physical Therapy should start about 3-5 days from your day of surgery. Therapy will last about 6-10 weeks * It is important not to put a pillow under your knee when you are relaxing or sleeping. It is just as important to make sure you are getting your knee pe rfectly straight as it is to regain your knee bend. * You were shown a series of exercises in the hospital. Do these exercises three times each day including the exercises you were shown in physical therapy. * Get up and walk several times each day. For the first four weeks, try not to stand or walk for more than one hour at a time. If you do stand or walk for more than one hour, you will not hurt anything, but your leg will likely swell. * As you feel comfortable, you may change from the walker or crutches to a cane and then to independent walking. Medications: * Narcotic You will likely be sent home from the hospital with a prescription for the narcotic pain medication that worked best throughout your stay. * Aspirin Most patients will be required to take Aspirin 81mg twice a day for 6 weeks after surgery. This is obtained [id number] and a prescription is not necessary. * Other medications may be prescribed for specific circumstances. If you have any questions, please call the office at . * Resume previous home medications unless otherwise instructed TEDs/Elastic Stockings: The white elastic stockings help limit swelling and prevent blood clots from forming in your legs.~ The more you wear them, the more they work. Wear them for six weeks. Dressing Care: The dressing can be changed after physical therapy on postop day #1. Daily dry dressing changes for a few days, especially if the incision is still draining some. If the incision is not draining then you may leave the flash open to air. If there is a little bit of drainage or if the flash are getting stuck on your clothing then cover the incision with a dry dressing. The flash will be removed at your 2 week follow-up appointment. Showering: You may shower 5 days from the day of surgery as long as the incision is no longer draining. You may shower with the flash exposed. Let soapy water run over the flash and pat them dry. Do not scrub or soak the incision. Things To Watch For: * Drainage from the incision site that occurs more than one week after your surgery. * Increased redness at the incision site. * Fever above 102 degrees Fahrenheit. * Unusual chest pain or shortness of breath. * Call [facility] at with any of the above problems Follow-Up Visit: Follow-up with Dr. Fregoso's PA (Henrry García) 2-3 weeks after your day of surgery. He will remove your flash and answer any questions. If you have any additional questions or concerns, Dr Fregoso is usually in the office at the same time and will be available An appointment was probably scheduled when you signed-up for surgery in the office. If you have any questions call Office Instructions: More detailed instructions as well as Frequently Asked Questions were provided in a folder by our office when you signed-up for surgery. Please review these instructions when you get home. If you have any further questions or concerns, please feel free to call the office at [phone] Pending Studies at Discharge: No Stand-Alone Forms: [facility], Smoking Cessation Medications and DC Order Prescriptions: New aspirin 81 mg Tablet,Delayed Release (Dr/Ec) 81 mg PO BID 42 Days Qty: 84 0RF oxycodone-acetaminophen 5-325 mg tablet 1 tab PO Q6H PRN (Reason: pain) Qty: 30 0RF Continued (DME) CPAP Supplies Misc See Dose Instructions .ROUTE .MEDSUPPLY Qty: 1 0RF Dose Instruction: As directed Rx Instructions: 11 cm water pressure Culturelle Kids Probiotics 5 billion cell powder in packet 5,000 mmu cells PO DAILY Qty: 30 0RF digestive enzymes Capsule 1 cap PO DAILY Rx Instructions: administer with food; swallow whole; do not crush/chew/dissolve/break/cut Metamucil Packet 1 packet PO HS Rx Instructions: mix into at least 8 oz of water or juice before administering fexofenadine [Nancy] 180 mg Tablet 180 mg PO QAM apple cider vinegar 600 mg Capsule 600 mg PO QAM Saline Eckerman 0.9 % Aerosol,Eckerman 1 spray MISCELLANEOUS DIRECTED PRN (Reason: Congestion) Doterra 1 dose PO BID Soothe Eye Drops 1 dose OPL BID irbesartan-hydrochlorothiazide 150-12.5 mg tablet 1 tab PO QAM tea tree oil 100 % Oil 1 ea TOPICAL DIRECTED Admission Data Admit Date/Time: 01/17/23 10:05 Attending Provider: Henrry Fregoso Admit Provider: Henrry Fregoso Primary Care Provider: Shraddha Mayer
[2023-01-18] MEDS: DOCUSATE SODIUM 100 MG CAP PO SCH (07:47)
[2023-01-18] MEDS: ASPIRIN 81 MG ECTAB PO SCH (07:47)
[2023-01-18] MEDS: oxyCODONE HCL IR 5 MG TAB (IMMEDIATE RELEASE) PO PRN (08:00)
[2023-01-18] MEDS ORDERED: dexAMETHasone 4 MG TAB PO SCH (08:00)
[2023-01-18] MEDS ORDERED: MULTIVITAMIN TAB PO SCH (09:00)
[2023-01-18] MEDS ORDERED: hydroCHLOROthiazide 25 MG TAB PO SCH (09:00)
[2023-01-18] MEDS ORDERED: LOSARTAN POTASSIUM 50 MG TAB PO SCH (09:00)
[2023-01-18] MEDS ORDERED: FEXOFENADINE HCL 180 MG TAB PO SCH (09:00)
== END 2023-01-18 11:37 | disposition home health service (06) ==
LOC: ASU 06:28 → 3E 06:28